=== PATIENT | male | born 1955 | race Caucasian/White ===

== ENCOUNTER 2024-05-31 08:50 | Day surgery (SDC) | payer OTHER ==
[2024-05-31] VITALS (10 sets, daily range): BP systolic 116–149; BP diastolic 63–86
[~2024-05-31] VITALS: Ht 165.1 cm; Wt 82.3 kg
[~2024-05-31 08:50] MED LIST: ALBU90OI INH; ALBU90OI6; ATOR80 PO; C COMPLEX1000 M1 PO; COENZYME Q10100 MG PO; COMBIVENT RESPIM4 GM; Calcium Carbon500 MG PO; CeFAZolin Sodium 2,000 MG in NS 100 ML IV SCH; EZET10 PO; FISH OIL 1,0001 EA10 PO; HYDROCHLOROTH12.5 MG PO; LOSA25 PO; Lactated Ringer's 1,000 ML IV SCH; METO25ER PO; MULLEIN; OMEP20ER PO; POTA10T PO; SIMV40; VITAMIN D5000 UNIT PO; ZINC15; [UNRECOGNIZED DRUG - OTHER]
[2024-05-31] MEDS ORDERED: Bupivacaine 0.5% HCl 5 MG/ML 30MLVIAL ONE (09:19)
--- NOTE | 2024-05-31 10:00 | NUR ---
PT HAD SMALL/TINY SPOT OF SHAVER CHAFAGE BELOW RIGHT GROIN MASS, DR JEAN NOTIFIED AND SHOWN SPOT. NO NEW ORDERS.
--- NOTE | 2024-05-31 10:02 | NUR ---
Ambulatory in Day Surgery BY SELF. Patient confirms NPO status and agrees with scheduled surgery. Pre-Op teaching done. Pt verbalizes understanding. Patient States Post-Procedure ride home has been arranged. History, Chart, Medications and Allergies reviewed before start of procedure.Lungs clear T/O to Auscultation.
[2024-05-31] MEDS ORDERED: FentaNYL Citrate 50 MCG/ML 2 ML Injection ONE (10:07)
[2024-05-31] MEDS ORDERED: propofoL 20 ML IV ONE (10:07)
[2024-05-31] MEDS ORDERED: Sugammadex Sodium 200 MG/2ML SDV (100 MG/ML) ONE (10:45)
[2024-05-31] MEDS ORDERED: Ketorolac Tromethamine 30mg Vial ONE (10:45)
[2024-05-31] MEDS ORDERED: HYDROcodone 5-APAP 325 TAB PO PRN (11:15)
--- NOTE | 2024-05-31 12:07 | NUR ---
Patient up to Ambulate independently. Gait steady. Discharge instructions reviewed with patient. Patient verbalizes understanding. Copy given to patient to take home. Patient States Post-Procedure ride home has been arranged. Discharged via wheelchair to private car for ride home. PT REPORTS READY TO GO HOME. PT INCISIONS C/D/I. SHAVER CHAFING CLEAN, NOT REDDENNED. PT DECLINED PAIN MEDICATION. PT BEEN ASSISTED WITH ADL'S PRN. PT GIVEN GLASSES WELL OTHER BELONGINGS INCLUDING TEETH. PT GIVEN ICE BAG.
== END 2024-05-31 12:07 | disposition home or self-care (01) ==
LOC: ORSCMMR 08:50 → ORD 09:45 → ORSCMMR 10:15
PROVIDERS: Surgery
PROC: 0JBC0ZX Excision of Pelvic Region Subcutaneous Tissue and Fascia, Open Approach, Diagnostic (ICD-10-PCS; principal; 2024-05-31 10:15)
PROC: 0WQF0ZZ Repair Abdominal Wall, Open Approach (ICD-10-PCS; principal; 2024-05-31 10:15)
DX: K42.0 Umbilical hernia with obstruction, without gangrene (principal); D17.1 Benign lipomatous neoplasm of skin and subcutaneous tissue of trunk; Z80.0 Family history of malignant neoplasm of digestive organs; I10 Essential (primary) hypertension; I25.10 Atherosclerotic heart disease of native coronary artery without angina pectoris; Z87.891 Personal history of nicotine dependence; J44.9 Chronic obstructive pulmonary disease, unspecified; K21.9 Gastro-esophageal reflux disease without esophagitis; Z79.899 Other long term (current) drug therapy
CPT/HCPCS: 88304; J0690; J1885; J2704; J3010; J7120

== ENCOUNTER 2024-09-26 20:07 | Inpatient (IN) | payer OTHER ==
[~2024-09-26] VITALS: Ht 167.6 cm; Wt 81.7 kg
[~2024-09-26 20:07] MED LIST changes: -CeFAZolin Sodium 2,000 MG in NS 100 ML IV SCH; -Lactated Ringer's 1,000 ML IV SCH
[2024-09-26 21:56] LABS: Albumin, Blood 2.7 g/dL (3.4-5.0); Albumin/Globulin Ratio 0.6 (0.8-1.8); Bilirubin, Total 0.9 mg/dL (0.1-1.0); Bun/Creatinine Ratio 23.7 (12.0-20.0); Calcium, Blood 8.4 mg/dL (8.5-10.1); Creatinine, Blood 1.14 mg/dL (0.60-1.20); Globulin, Blood 4.5 g/dL (2.2-4.0); Potassium, Blood 3.7 mmol/L (3.5-5.5); Total Protein, Blood 7.2 g/dL (6.4-8.2)
[2024-09-26 22:00] LABS: CORONAVIRUS COVID-19 AG Negative (NEGATIVE); INFLUENZA A AG Negative (NEGATIVE); INFLUENZA B AG Negative (NEGATIVE)
[2024-09-26 22:45] LABS: BASOPHILS ABSOLUTE AUTO 0.03 K/mm3 (0.00-0.23); BASOPHILS PERCENT AUTO 0 % (0-2); EOSINOPHILS PERCENT AUTO 0 % (0-6); Hematocrit 36.1 % (37.0-53.0); Hemoglobin 12.6 g/dL (13.5-17.5); IMMATURE GRAN ABSOLUTE AUTO 0.09 K/mm3 (0.00-0.10); IMMATURE GRAN PERCENT AUTO 1 % (0-1); LYMPHOCYTES ABSOLUTE AUTO 1.41 K/mm3 (0.84-5.20); LYMPHOCYTES PERCENT AUTO 11 % (21-46); MONOCYTES ABSOLUTE AUTO 0.84 K/mm3 (0.16-1.47); MONOCYTES PERCENT AUTO 7 % (4-13); Mean Corpuscular HGB 30.6 pg (26.0-34.0); Mean Corpuscular HGB Conc 34.9 g/dL (31.5-36.5); Mean Corpuscular Volume 88 fL (80-100); Mean Platelet Volume 10.1 fL (9.1-12.4); NEUTROPHILS ABSOLUTE AUTO 10.16 K/mm3 (1.96-9.15); NEUTROPHILS PERCENT AUTO 81 % (41-73); Platelet Count 206 K/mm3 (150-400); RDW Coefficient Variation 12.6 % (11.7-14.2); RDW Standard Deviation 40.6 fL (35.1-46.3); Red Blood Cell Count 4.12 M/mm3 (4.30-5.90); White Blood Cell Count 12.53 K/mm3 (4.00-11.30)
[2024-09-26] MEDS ORDERED: NS 1,000 ML IV SCH ×2 (22:45→23:50)
[2024-09-26] MEDS ORDERED: Acetaminophen 500 MG Tab PO ONE (22:45)
[2024-09-26 22:51] LABS: Magnesium, Blood 2.1 mg/dL (1.6-2.4); Phosphorus, Blood 3.4 mg/dL (2.5-4.9)
[2024-09-26] MEDS ORDERED: CefTRIAXone Sodium 1,000 MG in NS 100 ML IV ONE (22:55)
[2024-09-26] MEDS ORDERED: Azithromycin 500 MG in NS 250 ML IV ONE (23:00)
[2024-09-26 23:33] LABS: Source, Urine Clean Catch
[2024-09-26 23:41] LABS: Bilirubin, Urine Neg (Neg); Blood, Urine 2+ (Neg); Glucose Qualitative, Urine Neg (Neg); Ketones, Urine Neg (Neg); Leukocyte Esterase, Urine 1+ (Neg); Nitrite, Urine Neg (Neg); Protein, Urine 3+ (Neg); Urobilinogen, Urine NORM (Normal)
[2024-09-26 23:46] LABS: Appearance, Urine Clear (Clear); Color, Urine Yellow (P-Yellow)
[2024-09-26 23:47] LABS: Amorphous Light (0-Heavy); Bacteria Mod /hpf; Mucus Mod (0-Heavy); Red Blood Cells, Urine 0-2 /hpf (0-2); Squamous Epithelial Cells Rare /hpf (Few)
[2024-09-26] MEDS ORDERED: Acetaminophen 325 MG TABLET PO PRN (23:50)
[2024-09-26] MEDS ORDERED: Ondansetron HCl 2 MG / ML 2ML Vial IV PRN (23:55)
[2024-09-26] MEDS ORDERED: Enoxaparin 40 MG/0.4 ML SYR SC SCH (23:56)
[2024-09-27] MEDS ORDERED: LOSA50 PO (00:36)
[2024-09-27 00:46] VITALS: BP 123/70
--- NOTE | 2024-09-27 01:21 | NUR ---
ADMIT NOTE 69 YR OLDMALE ADMITTED TO FLOOR FROM THE ED WITH DX OF PNEUMONIA. TEMP IN ED WAS 102.3 F. WAS GIVEN TYLENOL AND TEMP AT ARRIVAL WAS 97.5 TEMPORAL. LUNG SOUNDS DIMINISHED IN LOWER LOBES FAYE AUSCULTATOTION. SATS 90%. ALERT AND ORIENTED X 4. ANSWERS QUESTIONS APPROPRIATELY. CAME IN WITH "GIRLFRIEND", BUT SHE LEFT SOON AFTER ADMISSION. ORIENTED TO USE OF CALL LIGHT AND BED CONTROL. RAILS UP X 3 AND BED IN LOW POSITION FOR SAFETY. AGREES TO USE CALL LIGHT IF NEED OOB. IV ANTIBIOTICS AND IVF INFUSING. NPO. WILL MONITOR
--- NOTE | 2024-09-27 03:56 | NUR ---
PIPELINE DISPATCHER SUMMARY VSS. WAS ADMITTED EARLIER IN THE SHIFT WITH DX OF PNEUMONIA. NPO AND IV ANTIBIOTICS AND FLUIDS ORDERED AND INITIATED. HOB ELEVATED. ON ROOM AIR. SATS WNL. LUNG SOUNDS CLEAR BUT DIMINISHED IN THE BASES PER AUSCULTATION. TORRES WAS PLACED IN THE ED PRIOR TO HIS ADMISSION TO THE FLOOR. CONTINENT OTHERWISE. PLACED ON Badoo. UP WITH ASSIST. ABLE TO REPOSTION SELF IN BED WITHOUT ASSIST. HAS BEEN RESTING QUIETLY WITH FEW INTERRUPTIONS. CALL LIGHT IN REACH, RAILS UP X 3 AND BED IN LOW POSITION FOR SAFETY. WILL CONTINUE TO MONITOR.
[2024-09-27 05:28] VITALS: BP 122/62
[2024-09-27 06:06] LABS: BASOPHILS ABSOLUTE AUTO 0.03 K/mm3 (0.00-0.23); BASOPHILS PERCENT AUTO 0 % (0-2); EOSINOPHILS ABSOLUTE AUTO 0.01 K/mm3 (0.00-0.68); EOSINOPHILS PERCENT AUTO 0 % (0-6); Hematocrit 36.4 % (37.0-53.0); Hemoglobin 12.8 g/dL (13.5-17.5); IMMATURE GRAN ABSOLUTE AUTO 0.14 K/mm3 (0.00-0.10); IMMATURE GRAN PERCENT AUTO 1 % (0-1); LYMPHOCYTES ABSOLUTE AUTO 1.53 K/mm3 (0.84-5.20); LYMPHOCYTES PERCENT AUTO 13 % (21-46); MONOCYTES ABSOLUTE AUTO 0.73 K/mm3 (0.16-1.47); MONOCYTES PERCENT AUTO 6 % (4-13); Mean Corpuscular HGB 30.5 pg (26.0-34.0); Mean Corpuscular HGB Conc 35.2 g/dL (31.5-36.5); Mean Corpuscular Volume 87 fL (80-100); Mean Platelet Volume 10.4 fL (9.1-12.4); NEUTROPHILS ABSOLUTE AUTO 9.74 K/mm3 (1.96-9.15); NEUTROPHILS PERCENT AUTO 80 % (41-73); Platelet Count 191 K/mm3 (150-400); RDW Coefficient Variation 12.8 % (11.7-14.2); RDW Standard Deviation 40.6 fL (35.1-46.3); White Blood Cell Count 12.18 K/mm3 (4.00-11.30)
[2024-09-27 06:40] LABS: Albumin, Blood 2.4 g/dL (3.4-5.0); Albumin/Globulin Ratio 0.6 (0.8-1.8); Bilirubin, Total 0.7 mg/dL (0.1-1.0); Bun/Creatinine Ratio 25.9 (12.0-20.0); Creatinine, Blood 0.97 mg/dL (0.60-1.20); Globulin, Blood 3.9 g/dL (2.2-4.0); Potassium, Blood 3.6 mmol/L (3.5-5.5); Total Protein, Blood 6.3 g/dL (6.4-8.2)
[2024-09-27] MEDS ORDERED: Albuterol HFA200 ACT/6.7 GM INH INH PRN (06:40)
[2024-09-27] MEDS ORDERED: Mometasone Furoate Inhaler 220 mcg 14 ACT INH SCH (07:20)
[2024-09-27] MEDS ORDERED: Ipratropium/Albuterol SulF 2.5-0.5MG/3 ML Amp INH SCH (07:20)
[2024-09-27 08:07] VITALS: BP 93/71
[2024-09-27] MEDS ORDERED: Metoprolol Succinate 50 MG TABCR PO SCH (09:00)
[2024-09-27] MEDS ORDERED: Potassium Chloride 10 Meq Tablet SA PO SCH (09:00)
[2024-09-27] MEDS ORDERED: PredniSONE 20 MG Tab PO SCH (09:00)
[2024-09-27] MEDS ORDERED: Loratadine 10 MG Tab PO SCH (09:00)
[2024-09-27] MEDS ORDERED: HydroCHLOROthiazide 25 mg Tab PO SCH (09:00)
[2024-09-27] MEDS ORDERED: Omeprazole 20 MG CapCR PO SCH (09:00)
[2024-09-27] MEDS ORDERED: NS 1,000 ML IV SCH (11:30)
[2024-09-27 15:36] VITALS: BP 119/66
--- NOTE | 2024-09-27 18:35 | NUR ---
SHIFT SUMMARY: PT A&O X4. PLEASANT AND COOPERATIVE WITH CARE. TORRES IN PLACE DRAINING SPENCER URINE TO GRAVITY. PT SBA TO BATHROOM. 1X BAG NS ORDERED THIS SHIFT INFUSING @ 75/HR. TELE IN PLACE STARTING SHIFT IN AFLUTTER AND CONVERTING TO SINUS RHYTHM AROUND 1050. PLAN FOR 1-2 MORE DAYS OF IV ABX, STEROIDS, AND BREATHING TREATMENTS. CALL LIGHT IN REACH. BED IN LOWEST POSITION.
[2024-09-27] MEDS ORDERED: CefTRIAXone Sodium 1,000 MG in NS 100 ML IV SCH (21:00)
[2024-09-27] MEDS ORDERED: Ezetimibe 10 MG Tab PO SCH (21:00)
[2024-09-27] MEDS ORDERED: Azithromycin 500 MG in NS 250 ML IV SCH (21:00)
[2024-09-27 21:45] VITALS: BP 127/62
[2024-09-28 00:23] VITALS: BP 119/61
--- NOTE | 2024-09-28 03:16 | NUR ---
LICENSED PESTICIDE APPLICATOR SUMMARY TEMP 99.4, OTHERWISE VSS. IVF AND ANTIBIOTICS INFUSING - SEE MAR FOR DETAILS. REPS EVEN, OCCASOINAL COUGHING, LUNG SOUNDS DIMINISHED IN THE BASES PER AUSCULTATION. DENIED PAIN. NO NOTED S/S DISTRESS. HOB ELEVATED. TORRES DRAINING SPENCER. ABLE TO REPOSITION SELF IN BED WITHOUT ASSIST. HAS BEEN RESTING QUIETLY OTHERWISE WITH FEW INTERRUPTIONS. CALL LIGHT IN REACH, RAILS UP X 2 AND BED IN LOW POSITION FOR SAFEY. WILL CONTINUE TO MONITOR
[2024-09-28 04:55] VITALS: BP 116/71
[2024-09-28] MEDS ORDERED: Ipratropium/Albuterol SulF 2.5-0.5MG/3 ML Amp INH PRN (05:00)
[2024-09-28 05:39] LABS: Hematocrit 32.7 % (37.0-53.0); Hemoglobin 11.5 g/dL (13.5-17.5); Mean Corpuscular HGB 30.7 pg (26.0-34.0); Mean Corpuscular HGB Conc 35.2 g/dL (31.5-36.5); Mean Corpuscular Volume 87 fL (80-100); Mean Platelet Volume 10.5 fL (9.1-12.4); Platelet Count 208 K/mm3 (150-400); RDW Coefficient Variation 12.7 % (11.7-14.2); RDW Standard Deviation 40.6 fL (35.1-46.3); Red Blood Cell Count 3.74 M/mm3 (4.30-5.90); White Blood Cell Count 10.11 K/mm3 (4.00-11.30)
[2024-09-28 06:12] LABS: Bun/Creatinine Ratio 24.4 (12.0-20.0); Calcium, Blood 8.4 mg/dL (8.5-10.1); Creatinine, Blood 0.9 mg/dL (0.60-1.20); Magnesium, Blood 2.3 mg/dL (1.6-2.4); Potassium, Blood 3.5 mmol/L (3.5-5.5)
[2024-09-28 07:45] VITALS: BP 127/67
[2024-09-28] MEDS ORDERED: Potassium Chloride 20 MEQ TabCR PO ONE (08:00)
[2024-09-28 11:18] VITALS: BP 137/81
[2024-09-28] MEDS ORDERED: Pulmicort Fle180 MCG INH (11:50)
[2024-09-28] MEDS ORDERED: LORA10ER PO (11:50)
[2024-09-28] MEDS ORDERED: CEPH500 PO (11:51)
[2024-09-28] MEDS ORDERED: CHLO10T PO (11:52)
[2024-09-28] MEDS ORDERED: CODEINE-GUAIFE120 M1 PO (11:52)
[2024-09-28] MEDS ORDERED: PRED20 PO (12:05)
--- NOTE | 2024-09-28 12:21 | NUR ---
PATIENT HAD A TORRES THAT WAS PLACED IN ER FOR RETENTION. DR. ONEAL PLACED D/C ORDERS. SO DC'D TORRES THIS AFTERNOON. EDUCATED PATIENT TO TRY AND PEE BEFORE DISCHARGE. WILL NOTIFY SHANE IF UNALBE TO URINATE.
--- NOTE | 2024-09-28 16:19 | NUR ---
DISCHARGE NOTE PATIENT TORRES WAS REMOVED THIS AFTERNOON. DISCHARGE ORDER PLACED BUT HELD UNTIL NOW HE HAD NOT PEED. PATIENT WAS GIVEN WATER AND BLADDER SCANNED AFTER A COUPLE HOURS HE WAS AT 211. PATIETN GIVEN A BIT OF SODA, URINATED ABOUT 75 ML. DISCHARGE PACKET WENT OVER WITH PATIENT. NEW PRESCRIPTIONS FAXED TO [facility]. HARD SCRIPT SENT WITH PATIENT. IV AND TELE REMOVED. NO NEW QUESTIONS OR CONCERNS PRIOR TO DC. EDUCATED PATIENT ON RETENTION AND TO FOLLOW UP WITH PCP FOR WORSENING SYMPTOMS. ESCORTED DOWN VIA WHEELCHAIR. BELONGINGS GATHERED AND SENT WITH PATIENT.
== END 2024-09-28 16:05 | disposition home or self-care (01) | DRG 194 ==
LOC: ER 20:07 → MEDS 20:08 → ERHOLD 20:08 → MEDS 09-27 00:40
PROVIDERS: Emergency Medicine; Hospitalist; Student in an Organized Health Care Education/Training Program; ADMIT Internal Medicine
DX: J18.9 Pneumonia, unspecified organism (principal); E87.1 Hypo-osmolality and hyponatremia; J44.0 Chronic obstructive pulmonary disease with (acute) lower respiratory infection; I10 Essential (primary) hypertension; E78.5 Hyperlipidemia, unspecified; K21.9 Gastro-esophageal reflux disease without esophagitis; E88.09 Other disorders of plasma-protein metabolism, not elsewhere classified; D64.9 Anemia, unspecified; R32 Unspecified urinary incontinence; R33.9 Retention of urine, unspecified; Z87.891 Personal history of nicotine dependence
CPT/HCPCS: 36415; 51702; 51798; 71046; 80048; 80053; 81001; 83605; 83735; 83880; 84100; 85025; 85027; 87086; 87428-QW; 93005; 93010; 94640; 94664; 94760; 96372; 96374; 96375; A9270; G0378; J0456; J0696; J1650; J7030; J7050; J7512